=== PATIENT | female | born 2000 | race Caucasian/White ===

== ENCOUNTER 2020-07-16 10:45 | Emergency (ER) | payer OTHER ==
[2020-07-16 11:14] VITALS: BP 132/73
--- NOTE | 2020-07-16 12:12 | ED Physician Documentation ---
History of Present Illness - Stated complaint Stated Complaint: RT FINGER LAC - Chief complaint Chief Complaint: Laceration - Additonal information Additional information: 19-year-old female presents to the emergency department for evaluation of a right index finger laceration sustained when washing a knife at home. Patient is right-hand dominant. Tetanus up-to-date. Review of Systems Constitutional: reports: Fever Ears: reports: Reviewed and negative Nose: reports: Reviewed and negative Cardiac: reports: Reviewed and negative Respiratory: reports: Reviewed and negative GI: reports: Reviewed and negative : reports: Reviewed and negative Skin: reports: Laceration (s) (Right index finger) PD PAST MEDICAL HISTORY - Past Medical History Past Medical History: No - Past Surgical History Past Surgical History: No - Present Medications Home Medications: Ambulatory Orders Medication Instructions Recorded Confirmed Vit No.129/Iron/Folic 1 tab PO DAILY 07/16/20 07/16/20 [ One Daily Tablet] - Allergies Allergies/Adverse Reactions: Allergies Allergy/AdvReac Type Severity Reaction Status Date / Time Sulfa (Sulfonamide Allergy Anaphylaxis Verified 07/16/20 11:05 Antibiotics) - Social History Does the pt smoke?: No Smoking Status: Never smoker Does the pt drink ETOH?: No Does the pt have substance abuse?: No - Immunizations Immunizations are current?: Yes - POLST Patient has POLST: No PD ED PE EXPANDED - General General: Alert, No acute distress - Extremities Extremities: Right finger(s) (0.5 cm laceration at the PIP joint radial side index finger. Some numbness reported around the cut but distal sensation preserved. Normal flexion extension at all joints against resistance.) Results - Vitals Vitals: Vital Signs - 24 hr 07/16/20 11:07 Temperature 36.7 C Heart Rate 80 Respiratory 19 Rate Blood Pressure 132/73 H O2 Saturation 100 Oxygen O2 Source Room air Procedures - Laceration (location) Right index finger Length in cm: 0.5 Wound type: Linear, Superficial Neurovascular status: Sensory intact, Motor intact, Vascular intact Tendon involvement: Tendon intact Wound preparation: Chlorhexadine, Irrigated copiously NS Skin layer closure: Dermabond Other: Patient tolerated well, No complications, Tetanus UTD PD MEDICAL DECISION MAKING - ED course Complexity details: reviewed results, re-evaluated patient ED course: Superficial laceration radial side at PIP joint right index finger sustained when using a knife at home. Tetanus is up-to-date. This wound to the over the joint was small enough to easily closed with Dermabond. Routine care and emergent return precautions discussed. Departure - Departure Disposition: 01 Home, Self Care Clinical Impression: Laceration of right index finger Qualifiers: Encounter type: initial encounter Damage to nail status: without damage Foreign body presence: without foreign body Qualified Code(s): S61.210A - Laceration without foreign body of right index finger without damage to nail, initial encounter Condition: Stable Record reviewed to determine appropriate education?: Yes Comments: The laceration on your right index finger was closed with glue. This will typically wear away over the next week. Do not submerge the finger in dirty dishwater or bath until laceration healed. Use the splint to try and remind you not to bend the finger too much until the laceration is healed. Return here for any concerns of infection.
== END 2020-07-16 12:24 | disposition home or self-care (01) ==
LOC: ED 10:45
DX: S61.210A Laceration without foreign body of right index finger without damage to nail, initial encounter (principal); W26.0XXA Contact with knife, initial encounter; Y93.G1 Activity, food preparation and clean up; Y92.000 Kitchen of unspecified non-institutional (private) residence as the place of occurrence of the external cause
CPT/HCPCS: 12001; 99281; 99282

== ENCOUNTER 2020-07-17 19:49 | Emergency (ER) | payer OTHER ==
--- NOTE | 2020-07-17 19:54 | ED Physician Documentation ---
PD HPI HEADACHE - Stated complaint Stated Complaint: MIGRAINE, N/V - Chief complaint Chief Complaint: Neuro - History obtained from History obtained from: Patient - History of Present Illness Timing - onset: How many hours ago (7) Timing - onset during: Rest, Light activity Timing - duration: Hours (7) Timing - details: Gradual onset, Still present Worst headache ever?: No: Worst headache ever? (The patient states she has had similar character headaches in the past with one-sided headache with light sensitivity and nausea. Typically they have gone away with Tylenol or ibuprofen and sleeping for couple of hours. This 1 has persisted and is associated with more nausea than usual.) Location: Right Quality: Throbbing, Aching Associated symptoms: Nausea, Vomiting. No: Fever, Stiff neck, Weakness, Numbness, Eye pain Improved by: Dark room Worsened by: Light Contributing factors: No: Hypertension, Recent illness, Trauma (not of the head. She did cut her finger yesterday.) Similar symptoms before: Diagnosis (migraines in the past but usually able to treat at home with Ibuprofen and sleep few hours.) Review of Systems Constitutional: denies: Fever, Chills Nose: denies: Rhinorrhea / runny nose, Congestion Throat: denies: Sore throat Respiratory: denies: Cough GI: reports: Nausea, Vomiting. denies: Abdominal Pain : reports: Now EGA (15 wks). denies: Vaginal bleeding PD PAST MEDICAL HISTORY - Past Medical History Cardiovascular: None Respiratory: None Neuro: Migraines - Past Surgical History Past Surgical History: No - Present Medications Home Medications: Ambulatory Orders Medication Instructions Recorded Confirmed Vit No.129/Iron/Folic 1 tab PO DAILY 07/16/20 07/16/20 [ One Daily Tablet] Ondansetron Odt [Zofran] 4 mg TL Q6H PRN #15 tablet 07/17/20 Promethazine [Phenergan] 25 mg PO Q6H PRN #10 tab 07/17/20 - Allergies Allergies/Adverse Reactions: Allergies Allergy/AdvReac Type Severity Reaction Status Date / Time Sulfa (Sulfonamide Allergy Intermediate Anaphylaxis Verified 07/17/20 19:52 Antibiotics) - Social History Does the pt smoke?: No Smoking Status: Never smoker Does the pt drink ETOH?: No Does the pt have substance abuse?: No - Immunizations Immunizations are current?: Yes - POLST Patient has POLST: No PD ED PE NORMAL - Vitals Vital signs reviewed: Yes - General General: Alert and oriented X 3, Well developed/nourished - HEENT HEENT: Atraumatic, Pharynx benign - Neck Neck: Supple, no meningeal sign, No adenopathy - Cardiac Cardiac: RRR, No murmur - Respiratory Respiratory: Clear bilaterally - Abdomen Abdomen: Soft, Non tender - Derm Derm: Normal color, Warm and dry Results - Vitals Vitals: Vital Signs - 24 hr 07/17/20 07/17/20 19:50 21:52 Temperature 36.5 C 36.8 C Heart Rate 74 72 Respiratory 16 16 Rate Blood Pressure 123/66 119/61 O2 Saturation 99 100 Oxygen O2 Source Room air - Labs Labs: Laboratory Tests 07/17/20 20:28 Sodium 139 Potassium 3.6 Chloride 108 Carbon Dioxide 22 Anion Gap 9.0 BUN 5 L Creatinine 0.4 Estimated GFR (MDRD) 203 Glucose 92 Calcium 9.5 Total Bilirubin 0.4 AST 40 ALT 85 H Alkaline Phosphatase 48 Total Protein 7.0 Albumin 3.8 Globulin 3.2 Albumin/Globulin Ratio 1.2 Lipase 23 PD MEDICAL DECISION MAKING - ED course Complexity details: re-evaluated patient (improved quite nicely with migraine targeted therapy. ), considered differential (seems likely migraine with history of same though current is more severe, but has same character. ), d/w patient Departure - Departure Disposition: 01 Home, Self Care Clinical Impression: Migraine headache Qualifiers: Migraine type: unspecified Status migrainosus presence: with status migrainosus Intractability: not intractable Qualified Code(s): G43.901 - Migraine, unspecified, not intractable, with status migrainosus Nausea and vomiting Qualifiers: Vomiting type: unspecified Vomiting Intractability: non-intractable Qualified Code(s): R11.2 - Nausea with vomiting, unspecified Qualifiers: Weeks of gestation: 15 weeks Qualified Code(s): Z3A.15 - 15 weeks gestation of Condition: Stable Record reviewed to determine appropriate education?: Yes Instructions: ED Headache Migraine Follow-Up: SUZIE SOTO MD [Primary Care Provider] - Prescriptions: Promethazine [Phenergan] 25 mg PO Q6H PRN #10 tab PRN Reason: Nausea / Vomiting Ondansetron Odt [Zofran] 4 mg TL Q6H PRN #15 tablet PRN Reason: Nausea / Vomiting Comments: Stay well-hydrated. You can use ondansetron if needed for nausea. Tylenol if needed for headache. For repeat migraines, you could use the ondansetron or more likely to get benefit from promethazine for nausea which also helps with migraine come by and with ibuprofen. You can use the ibuprofen up through 20 weeks of . After that just Tylenol. Migraines can occur more readily during and commonly will be less frequent afterward. Follow-up with your primary care if not improved well over the next couple of days. Return to the ER if significant migraine again. Discharge Date/Time: 07/17/20 21:55
[2020-07-17] MEDS ORDERED: PROCHLORPERAZINE 10 MG/2 ML VIAL IVP STA (20:11)
[2020-07-17] MEDS ORDERED: KETOROLAC 30 MG/ML VIAL IVP STA (20:11)
[2020-07-17] MEDS ORDERED: SODIUM CHLORIDE 0.9% 1,000 ML IV STA ×2 (20:11→20:12)
[2020-07-17] MEDS ORDERED: diphenhydrAMINE INJ 50 MG/ML VIAL IVP STA (20:11)
[2020-07-17 20:45] LABS: ALBUMIN 3.8 g/dL (3.2-5.5); ALBUMIN/GLOBULIN RATIO 1.2 (1.0-2.2); BILIRUBIN,TOTAL 0.4 mg/dL (0.2-1.0); CALCIUM 9.5 mg/dL (8.5-10.3); CREATININE 0.4 mg/dL (0.4-1.0); POTASSIUM 3.6 mmol/L (3.5-5.0)
[2020-07-17 21:53] VITALS: BP 119/61
== END 2020-07-17 21:55 | disposition home or self-care (01) ==
LOC: ED 19:49
DX: O99.352 Diseases of the nervous system complicating pregnancy, second trimester (principal); G43.901 Migraine, unspecified, not intractable, with status migrainosus; O21.8 Other vomiting complicating pregnancy; Z3A.15 15 weeks gestation of pregnancy
CPT/HCPCS: 36415; 80053; 83690; 96374; 96375; 99283; 99284; J1200

== ENCOUNTER 2020-09-16 10:55 | Emergency (ER) | payer OTHER ==
[2020-09-16] MEDS ORDERED: SODIUM CHLORIDE 0.9% 1,000 ML IV STA (11:11)
--- NOTE | 2020-09-16 11:28 | ED Physician Documentation ---
History of Present Illness - Stated complaint Stated Complaint: DIZZY,BLURRED VISION - Chief complaint Chief Complaint: Neuro - History obtained from History obtained from: Patient, Family - Additonal information Additional information: Patient comes emergency department chief complaint of near syncopal episode. Patient states she was shopping with her at the [facility] and had been up walking around for a while when suddenly, she began to feel lightheaded. Patient states that she noticed that her vision seemed to grow dim as though she was going to faint. She sat down while walking to her car because she did not feel she could get all the way to the car without fainting. No focal weakness. Patient denies chest pain or shortness of breath. She states that the episode eventually passed on its own. She denies previous episodes like this. She is about 24 weeks with her first child., And has not had any complications during the . No fevers or chills. No dysuria. No frequency. Patient has had a lot of heartburn, and also states that she had some bleeding early in but that this subsided. No current vaginal bleeding or fluid leakage. She recently had a 20-week ultrasound which looked good. She has had some nausea and vomiting throughout the , but is able to hold down fluids in between. Patient is otherwise healthy. No other c omplaints at this time. Review of Systems Ten Systems: 10 systems reviewed and negative Constitutional: reports: Reviewed and negative Eyes: reports: Reviewed and negative Ears: reports: Reviewed and negative Nose: reports: Reviewed and negative Throat: reports: Reviewed and negative Cardiac: reports: Reviewed and negative Respiratory: reports: Reviewed and negative GI: reports: Reviewed and negative : reports: Now EGA. denies: Dysuria, Vaginal bleeding Skin: reports: Reviewed and negative Musculoskeletal: reports: Reviewed and negative Neurologic: reports: Near syncope. denies: Focal weakness, Numbness Psychiatric: reports: Reviewed and negative Endocrine: reports: Reviewed and negative Immunocompromised: reports: Reviewed and negative PD PAST MEDICAL HISTORY - Past Medical History Cardiovascular: None Respiratory: None Neuro: Migraines - Past Surgical History Past Surgical History: No - Present Medications Home Medications: Ambulatory Orders Medication Instructions Recorded Confirmed Vit No.129/Iron/Folic 1 tab PO DAILY 07/16/20 07/16/20 [ One Daily Tablet] Ondansetron Odt [Zofran] 4 mg TL Q6H PRN #15 tablet 07/17/20 Promethazine [Phenergan] 25 mg PO Q6H PRN #10 tab 07/17/20 - Allergies Allergies/Adverse Reactions: Allergies Allergy/AdvReac Type Severity Reaction Status Date / Time Sulfa (Sulfonamide Allergy Intermediate Anaphylaxis Verified 09/16/20 11:07 Antibiotics) - Social History Does the pt smoke?: No Smoking Status: Never smoker Does the pt drink ETOH?: No Does the pt have substance abuse?: No - Immunizations Immunizations are current?: Yes - POLST Patient has POLST: No PD ED PE NORMAL - Vitals Vital signs reviewed: Yes - General General: Alert and oriented X 3, No acute distress, Well developed/nourished - HEENT HEENT: Atraumatic, PERRL, EOMI, Moist mucous membranes - Neck Neck: Supple, no meningeal sign - Cardiac Cardiac: RRR, No murmur, Strong equal pulses - Respiratory Respiratory: No respiratory distress, Clear bilaterally - Abdomen Abdomen: Soft, Non tender, Other (Gravid) - Derm Derm: Normal color, Warm and dry, No rash - Extremities Extremities: No deformity, No edema, No calf tenderness / cord - Neuro Neuro: Alert and oriented X 3, requisition approver 2-12 intact, No motor deficit, No sensory deficit, Normal speech - Psych Psych: Normal mood, Normal affect Results - Vitals Vitals: Vital Signs - 24 hr 09/16/20 09/16/20 11:01 12:37 Temperature 36.9 C 36.5 C Heart Rate 60 72 Respiratory 16 18 Rate Blood Pressure 122/68 129/82 H O2 Saturation 99 100 Oxygen O2 Source Room air - Labs Labs: Laboratory Tests 09/16/20 09/16/20 09/16/20 11:24 11:24 11:45 WBC 13.3 H RBC 4.22 Hgb 12.1 Hct 36.7 L MCV 87.0 MCH 28.7 MCHC 33.0 RDW 14.0 Plt Count 247 MPV 9.3 Neut # (Auto) 10.7 H Lymph # (Auto) 1.7 [place] # (Auto) 0.6 Eos # (Auto) 0.2 Baso # (Auto) 0.0 Absolute Nucleated RBC 0.00 Nucleated RBC % 0.0 Sodium 135 Potassium 3.5 Chloride 105 Carbon Dioxide 22 Anion Gap 8.0 BUN 8 Creatinine 0.4 Estimated GFR (MDRD) 203 Glucose 98 Calcium 9.0 Total Bilirubin 0.5 AST 19 ALT 19 Alkaline Phosphatase 66 Total Protein 6.9 Albumin 3.3 Globulin 3.6 Albumin/Globulin Ratio 0.9 L Lipase 26 Urine Color YELLOW Urine Clarity CLEAR Urine pH 7.0 Ur Specific [place] 1.020 Urine Protein NEGATIVE Urine Glucose (UA) NEGATIVE Urine Ketones NEGATIVE Urine Occult Blood NEGATIVE Urine Nitrite NEGATIVE Urine Bilirubin NEGATIVE Urine Urobilinogen 0.2 (NORMAL) Ur Leukocyte Esterase NEGATIVE Ur Microscopic Review NOT INDICATED Urine Culture Comments NOT INDICATED PD MEDICAL DECISION MAKING - ED course Complexity details: reviewed results, re-evaluated patient, considered differential, d/w patient, d/w family ED course: Patient was well-appearing overall, and I suspected a vasovagal near syncopal episode. She was worked up with labs and urinalysis, and was treated with IV fluids in the emergency department. Bedside heart tones were performed by ED physician with Doppler and found to be from the upper 140s to 150s. Labs and urinalysis were unremarkable. Patient was found to be very well-appearing in the emergency department and ambulated without difficulty. I did not find evidence of an emergent cause of her symptoms here. 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 Departure - Departure Disposition: 01 Home, Self Care Clinical Impression: Postural dizziness with near syncope Qualifiers: Weeks of gestation: 24 weeks Qualified Code(s): Z3A.24 - 24 weeks gestation of Condition: Stable Instructions: ED Dizziness Syncope Fainting W Pre Comments: Your labs and urinalysis look great. Your baby's heartbeat is at a normal rate for his age. It is not clear exactly why you had the lightheaded episode today, though it is increasingly common for women as progresses into his later stages. Sometimes, the lightheadedness can be from the position of the baby compressing larger vessels within the abdominal cavity, altering the blood flow as it returns to your heart to be pumped forward again. Sometimes it can be some degree of dehydration. Your labs look good. Your urinalysis is negative for infection. At this point in time, it is advisable that you drink plenty of fluids and follow-up with your OB residential program manager as scheduled. If you continue to have episodes of lightheadedness and near fainting, please see your OB for further evaluation. There is no evidence of a stroke today or any other emergent condition. Discharge Date/Time: 09/16/20 12:39
[2020-09-16 11:33] LABS: BASOPHILS % (AUTO) 0.2 %; EOSINOPHILS # (AUTO) 0.2 10^3/uL (0.0-0.7); EOSINOPHILS % (AUTO) 1.7 %; HCT - HEMATOCRIT 36.7 % (37.0-47.0); HGB - HEMOGLOBIN 12.1 g/dL (12.0-16.0); LYMPHOCYTES # (AUTO) 1.7 10^3/uL (1.5-3.5); LYMPHOCYTES % (AUTO) 12.4 %; MEAN CORPUSCULAR HEMOGLOBIN 28.7 pg (27.0-31.0); MEAN PLATELET VOLUME 9.3 fL (7.9-10.8); MONOCYTES # (AUTO) 0.6 10^3/uL (0.0-1.0); MONOCYTES % (AUTO) 4.5 %; NEUTROPHILS # (AUTO) 10.7 10^3/uL (1.5-6.6); NEUTROPHILS % (AUTO) 79.9 %; PLT - PLATELET COUNT 247 10^3/uL (130-450); RED BLOOD COUNT 4.22 10^6/uL (4.20-5.40); WHITE BLOOD COUNT 13.3 x10^3/uL (4.8-10.8)
[2020-09-16 11:47] LABS: ALBUMIN 3.3 g/dL (3.2-5.5); ALBUMIN/GLOBULIN RATIO 0.9 (1.0-2.2); BILIRUBIN,TOTAL 0.5 mg/dL (0.2-1.0); CREATININE 0.4 mg/dL (0.4-1.0); POTASSIUM 3.5 mmol/L (3.5-5.0); TOTAL PROTEIN 6.9 g/dL (6.7-8.2)
[2020-09-16 12:08] LABS: BILIRUBIN,URINE NEGATIVE (NEGATIVE); GLUCOSE, URINE (UA) NEGATIVE (NEGATIVE); KETONES,URINE (UA) NEGATIVE (NEGATIVE); LEUKOCYTE ESTERASE, URINE NEGATIVE (NEGATIVE); NITRITE,URINE NEGATIVE (NEGATIVE); OCCULT BLOOD,URINE NEGATIVE (NEGATIVE); PROTEIN,URINE NEGATIVE (NEGATIVE); UROBILINOGEN,URINE 0.2 (NORMAL) E.U./dL (NORMAL)
[2020-09-16 12:11] LABS: CLARITY,URINE CLEAR (CLEAR)
[2020-09-16 12:39] VITALS: BP 129/82
== END 2020-09-16 12:39 | disposition home or self-care (01) ==
LOC: ED 10:55
DX: O26.892 Other specified pregnancy related conditions, second trimester (principal); R55 Syncope and collapse; Z3A.24 24 weeks gestation of pregnancy
CPT/HCPCS: 36415; 80053; 81001; 81003; 83690; 85025; 87086; 99283

== ENCOUNTER 2021-05-12 00:08 | Emergency (ER) | payer OTHER ==
[2021-05-12 00:38] LABS: BILIRUBIN,URINE NEGATIVE (NEGATIVE); GLUCOSE, URINE (UA) NEGATIVE (NEGATIVE); KETONES,URINE (UA) NEGATIVE (NEGATIVE); LEUKOCYTE ESTERASE, URINE TRACE (NEGATIVE); NITRITE,URINE NEGATIVE (NEGATIVE); OCCULT BLOOD,URINE NEGATIVE (NEGATIVE); PROTEIN,URINE NEGATIVE (NEGATIVE); UROBILINOGEN,URINE 0.2 (NORMAL) E.U./dL (NORMAL)
[2021-05-12 00:40] LABS: CLARITY,URINE CLEAR (CLEAR); HCG UR QUAL NEGATIVE
[2021-05-12 00:47] LABS: RBC,URINE 0-5 /HPF (0-5); WBC,URINE 0-3 /HPF (0-5)
[2021-05-12 00:48] LABS: BACTERIA,URINE Rare /HPF (None Seen); SQUAMOUS EPITHELIAL CELL,UR RARE Squamous (<= Few)
[2021-05-12] MEDS ORDERED: cephALEXin 250 MG CAPSULE PO STA (02:09)
--- NOTE | 2021-05-12 02:42 | ED Physician Documentation ---
History of Present Illness - Stated complaint Stated Complaint: FEMALE - Chief complaint Chief Complaint: UTI - History obtained from History obtained from: Patient - Additonal information Additional information: 20-year-old woman with past medical history of frequent UTIs, just finished a course of Macrobid 2 days ago, presents with nausea, suprapubic abdominal cramping gradual in onset and constant over the past day radiating to the right flank. Denies vomiting, fever, dysuria, hematuria or increased frequency. Review of Systems Ten Systems: 10 systems reviewed and negative Constitutional: denies: Fever, Chills GI: reports: Abdominal Pain, Nausea. denies: Vomiting : denies: Dysuria, Frequency, Hematuria PD PAST MEDICAL HISTORY - Past Medical History Past Medical History: Yes Cardiovascular: None Respiratory: None Neuro: Migraines - Past Surgical History Past Surgical History: No - Present Medications Home Medications: Ambulatory Orders Medication Instructions Recorded Confirmed Vit No.129/Iron/Folic 1 tab PO DAILY 07/16/20 07/16/20 [ One Daily Tablet] Ondansetron Odt [Zofran] 4 mg TL Q6H PRN #15 tablet 07/17/20 Promethazine [Phenergan] 25 mg PO Q6H PRN #10 tab 07/17/20 cephALEXin [Keflex] 500 mg PO Q6H #28 05/12/21 - Allergies Allergies/Adverse Reactions: Allergies Allergy/AdvReac Type Severity Reaction Status Date / Time Sulfa (Sulfonamide Allergy Intermediate Anaphylaxis Verified 05/12/21 00:28 Antibiotics) - Social History Does the pt smoke?: No Smoking Status: Never smoker Does the pt drink ETOH?: No Does the pt have substance abuse?: No - Immunizations Immunizations are current?: Yes - POLST Patient has POLST: No PD ED PE NORMAL - Vitals Vital signs reviewed: Yes - General General: Alert and oriented X 3, No acute distress, Well developed/nourished - HEENT HEENT: Atraumatic, PERRL, EOMI - Neck Neck: Supple, no meningeal sign - Cardiac Cardiac: RRR - Respiratory Respiratory: No respiratory distress, Clear bilaterally - Abdomen Abdomen: Non tender, Non distended, Other (Suprapubic discomfort to palpation) - Back Back: Other (R CVA ttp) - Derm Derm: Normal color, Warm and dry - Extremities Extremities: No deformity - Neuro Neuro: No motor deficit, No sensory deficit - Psych Psych: Normal mood, Normal affect Results - Vitals Vitals: Vital Signs - 24 hr 05/12/21 05/12/21 00:20 01:53 Temperature 36.0 C L Heart Rate 80 66 Respiratory 16 18 Rate Blood Pressure 148/69 H 135/86 H O2 Saturation 97 100 Oxygen O2 Source Room air - Labs Labs: Laboratory Tests 05/12/21 00:30 Urine Color YELLOW Urine Clarity CLEAR Urine pH 6.0 Ur Specific [place] <=1.005 Urine Protein NEGATIVE Urine Glucose (UA) NEGATIVE Urine Ketones NEGATIVE Urine Occult Blood NEGATIVE Urine Nitrite NEGATIVE Urine Bilirubin NEGATIVE Urine Urobilinogen 0.2 (NORMAL) Ur Leukocyte Esterase TRACE H Urine RBC 0-5 Urine WBC 0-3 Ur Squamous Epith Cells RARE Squamous Urine Bacteria Rare Ur Microscopic Review INDICATED Urine Culture Comments INDICATED Urine HCG, Qual NEGATIVE PD MEDICAL DECISION MAKING - ED course ED course: 20-year-old woman with past medical history of frequent UTIs presents with urinary tract infection today. Antibiotics prescribed and return precautions given. She will follow up with [facility] on with her urology appointment that has already been set by [facility]. Departure - Departure Disposition: Home, Self Care Clinical Impression: UTI (urinary tract infection), Flank pain Condition: Good Instructions: UTI Prescriptions: cephALEXin [Keflex] 500 mg PO Q6H #28 Comments: You are seen in the emergency department for urinary tract infection. Please follow-up with your primary doctor and with urology. Return to the emergency department if you have fever, new or worsening symptoms or other concerns. Take your antibiotics as prescribed.
[2021-05-12 02:49] VITALS: BP 128/79
== END 2021-05-12 02:49 | disposition home or self-care (01) ==
LOC: ED 00:08
DX: N39.0 Urinary tract infection, site not specified (principal)
CPT/HCPCS: 81001; 81025; 87086; 99283; A9270; 81003

== ENCOUNTER 2021-08-20 20:38 | Emergency (ER) | payer OTHER ==
[2021-08-20] MEDS ORDERED: predniSONE 20 MG TABLET PO STA (21:44)
[2021-08-20] MEDS ORDERED: cephALEXin 250 MG CAPSULE PO STA (21:44)
--- NOTE | 2021-08-20 21:50 | ED Physician Documentation ---
PD HPI SKIN - Stated complaint Stated Complaint: L ARM RASH - Chief complaint Chief Complaint: Wound - History obtained from History obtained from: Patient - History of Present Illness Timing - duration: Days (3-4) Timing - details: Gradual onset Pain level max: 1 Pain level now: 1 Location: Other (Left wrist, volar aspect) Quality / character: Itchy, Painful - Additional information Additional information: 20-year-old female presents to the emergency department stating that she has a rash on the volar aspect of the left wrist. This is occurred before from her watchband. She states that tonight she was scratching it and noticed that that the pustules ruptured and there was pus on her arm. She states there is itching as well. Nothing makes it better or worse. No fevers. No chills. No other rashes. Review of Systems Constitutional: denies: Fever, Chills : reports: Other (Patient is not , breast-feeding or trying to become .). denies: Now EGA Neurologic: denies: Headache PD PAST MEDICAL HISTORY - Past Medical History Past Medical History: Yes Cardiovascular: None Respiratory: None Neuro: Migraines Psych: Depression, Anxiety - Past Surgical History Past Surgical History: No - Present Medications Home Medications: Ambulatory Orders Medication Instructions Recorded Confirmed Fluticasone Propion/Salmeterol 1 spray NS DAILY 08/20/21 08/20/21 [Fluticasone-Salmeterol 100-50] Loratadine [Claritin] 10 mg PO DAILY 08/20/21 08/20/21 Nitrofurantoin [Macrobid] 100 mg PO DAILY 08/20/21 08/20/21 Sertraline HCl 100 mg PO DAILY 08/20/21 08/20/21 cephALEXin [Keflex] 500 mg PO Q6H #28 cap 08/20/21 predniSONE [Deltasone] 40 mg PO DAILY #10 tablet 08/20/21 - Allergies Allergies/Adverse Reactions: Allergies Allergy/AdvReac Type Severity Reaction Status Date / Time Sulfa (Sulfonamide Allergy Intermediate Anaphylaxis Verified 08/20/21 20:48 Antibiotics) - Social History Does the pt smoke?: No Smoking Status: Never smoker Does the pt drink ETOH?: No Does the pt have substance abuse?: No - Immunizations Immunizations are current?: Yes - POLST Patient has POLST: No PD ED PE NORMAL - Vitals Vital signs reviewed: Yes - General General: Alert and oriented X 3 - Derm Derm: Warm and dry, Other (There is a 2 x 3 cm area of erythema and maculopa pular rash to the volar aspect of the left wrist. Neurovascularly intact. Otherwise normal exam. No induration. No fluctuance) - Neuro Neuro: Alert and oriented X 3 - Psych Psych: Normal mood, Normal affect Results - Vitals Vitals: Vital Signs - 24 hr 08/20/21 08/20/21 20:40 22:13 Temperature 36.0 C L 36.9 C Heart Rate 84 84 Respiratory 16 16 Rate Blood Pressure 143/73 H 120/62 O2 Saturation 99 99 Oxygen O2 Source Room air PD MEDICAL DECISION MAKING - ED course Complexity details: considered differential, d/w patient ED course: Patient with a mild rash to the volar aspect of the left wrist, likely contact dermatitis. Will place on a short course of steroids for this. Appears to have a secondary infection. Will place on Keflex. Patient is well-appearing, nontoxic. Afebrile. No evidence of abscess. Patient counseled regarding signs and symptoms for which I believe and urgent re-evaluation would be necessary. Patient with good understanding of and agreement to plan and is comfortable going home at this time This document was made in part using voice recognition software. While efforts are made to proofread this document, sound alike and grammatical errors may occur. Departure - Departure Disposition: 01 Home, Self Care Clinical Impression: Staph infection Dermatitis, contact Qualifiers: Contact dermatitis type: unspecified Contact dermatitis trigger: unspecified trigger Qualified Code(s): L25.9 - Unspecified contact dermatitis, unspecified cause Condition: Good Instructions: ED Staph Infec Abx Tx Only, ED Dermatitis Contact Follow-Up: SONG SAHU DO [Primary Care Provider] - Within 1 week Prescriptions: predniSONE [Deltasone] 40 mg PO DAILY #10 tablet cephALEXin [Keflex] 500 mg PO Q6H #28 cap Comments: Your prescriptions were sent to [facility] in [place]. Please take all antibiotics until gone. Return if you worsen. You should notice an improvement within the next 24 to 48 hours. You do not need to cover the area. Discharge Date/Time: 08/20/21 22:13
[2021-08-20 22:14] VITALS: BP 120/62
== END 2021-08-20 22:13 | disposition home or self-care (01) ==
LOC: ED 20:38
DX: L25.9 Unspecified contact dermatitis, unspecified cause (principal)
CPT/HCPCS: 99282; A9270; J7512